=== PATIENT | male | born 1965 | race Caucasian/White ===

== ENCOUNTER 2016-09-11 00:47 | Day surgery (SDC) | payer OTHER ==
[~2016-09-11] VITALS: Ht 170.2 cm; Wt 113.0 kg
[2016-09-11] VITALS (11 sets, daily range): BP systolic 95–106; BP diastolic 44–63; PULSE 48–53; RESP 16; O2SAT 95–96
[~2016-09-11 00:47] MED LIST: ALBU0.63 INHALATION; ALLO300T2 PO; AMIO200T PO; BISO5TAB2 PO; FURO40TA4 PO; GUAI120L30 PO; IPRA4AER IH; LISI-571 PO; LOV120 SUBQ; MONT10TA23 PO; SPIR25TA3 PO; WARF5TAB7 PO; WARF7.5T4 PO
[2016-09-11 10:29] LABS: BASOPHILS % (AUTO) 0.6 % (0-3); EOSINOPHILS % (AUTO) 2.9 % (0-5); Mean Corpuscular Hemoglobin 31.2 pg (27.0-35.0); Mean Corpuscular Volume 87.8 fL (81-100); NEUTROPHILS % (AUTO) 54.6 % (40-74); Platelet Count 176 bil/L (150-400)
[2016-09-11 10:54] LABS: INR 0.95 ratio
[2016-09-11] MEDS ORDERED: 0.9% Sodium Chloride 1,000 ML ONE ×2 (11:13→12:01)
[2016-09-11] MEDS ORDERED: Heparin 1,000 Units/500 mL NS Premix IV ONE (12:01)
[2016-09-11] MEDS ORDERED: Nitroglycerin 50,000 mcg/250 mL D5W Premix IV ONE (12:01)
[2016-09-11] MEDS ORDERED: Heparin 1,000 Unit/mL 10 mL Inj ONE (12:01)
[2016-09-11] MEDS ORDERED: fentaNYL-PF 50 mCg/mL 2 mL Inj ONE (12:20)
[2016-09-11] MEDS ORDERED: 0.9% Sodium Chloride 50 ML ONE (12:40)
--- NOTE | 2016-09-11 13:32 | PCM.CVCATH ---
Cardiac Cath Report Date of Service Sep 11, 2016 Primary Indication Heart failure, dyspnea Procedure coronary angiography, left heart cath, and right heart cath Vascular Access Right radial artery using 5 Fr slender sheath, closure with TR band. Right internal jugular vein using 6Fr sheath, closure with manual hold. Diagnostic Catheters Left main: [place] 4.5, 5 Fr RCA: [place] 4.5, 5 Fr Procedure Details Coronary angiography details: The patient was brought to the cardiac catheterization lab in the fasting state. Patient was laid supine on the cardiac catheterization table and the right neck and right forearm were prepped and draped in the usual sterile fashion. One percent Xylocaine was infiltrated over the right internal jugular vein and over the right radial artery. Right internal jugular vein was accessed with ultrasound guidance and 6Fr swan was used to obtain pressures and brent cardiac output. Right radial access was achieved under ultrasound guidance after right heart cath was completed. Guide wire was used to advance the catheter through the sheath and up into aortic sinuses. After coronary angiography was completed, guide wire was advanced through the catheter ahead of the tip of the catheter and the guide wire along with the catheter were pulled together out of the sheath. Medications/Fluoro Time Medications administered: 1.Fentanyl: 50 mcg IV 2. Midazolam: 2.5 mg IV 3. Heparin: 6000 units IV 4. Nitroglycerin: 250 mcg IA Fluoroscopy Time: 3.2 minutes, 654 mGy Contrast (Isovue): 50 mls Blood loss: 10 mls Findings 1) Coronary angiography: Right dominance with slow flow in the coronary arteries a. Left main is normal caliber with mild luminal irregularities. b. LAD is normal caliber with mild luminal irregularities. There is a large caliber diagonal artery that has minimal luminal irregularities. c. LCx is normal caliber with mild luminal irregularities. There is a large caliber obtuse marginal artery with minimal luminal irregularities. d. RCA is calcific vessel with mild luminal irregularities. 2) Left Heart catheterization: a. LVEDP is mildly elevated at 20 mmHg. b. No significant transaortic gradient on catheter pull-back. 3) Right heart cath: * RA Mean Pressure 16 mmHg * RV Pressure 49/14 (RVEDP 17 mmHg) * PA Pressure 51/28 (mean 38 mmHg) * PCWP 23 mmHg * Brent Cardiac Output 4.76 L/min / Brent Cardiac Index 2.14 L/min/m2 Complications There were no periprocedural complications identified. Summary 1) Mild coronary artery disease with slow flow that is likely due to heart failure 2) Elevated right and left sided filling pressures, mild pulmonary hypertension , and normal cardiac output Recommendations 1) Medical management of non-obstructive coronary artery disease 2) Medical management of heart failure copies to: Tino Hernandez MD, Bhrigu R MD Sep 11, 2016 13:32
--- NOTE | 2016-09-11 16:53 | NUR ---
Pt discharged to home, ambulatory, accompanied by spouse. Pt's VSS, Rt radial puncture site CDI with no bleeding/hematoma noted at time of d/c. Pt's IVs discontinued intact, pt given all discharge instructions and follow up appts. Pt had no further questions at time of d/c.
== END 2016-09-11 23:59 | disposition home or self-care (01) ==
LOC: SOUO 00:47
PROVIDERS: ATTEND Internal Medicine Cardiovascular Disease
DX: I50.9 Heart failure, unspecified (principal); I27.2 Other secondary pulmonary hypertension; I25.10 Atherosclerotic heart disease of native coronary artery without angina pectoris; I48.0 Paroxysmal atrial fibrillation; G47.33 Obstructive sleep apnea (adult) (pediatric); J44.9 Chronic obstructive pulmonary disease, unspecified; Z87.891 Personal history of nicotine dependence; J45.909 Unspecified asthma, uncomplicated; Z79.01 Long term (current) use of anticoagulants; E66.9 Obesity, unspecified; Z68.38 Body mass index [BMI] 38.0-38.9, adult; I05.0 Rheumatic mitral stenosis
CPT/HCPCS: 36415; 80048; 85025; 85610; 93460; 99152; 99153; C1729; C1769; C1887; C1894; J1644; J2250; J3010; J7030; Q9967